=== PATIENT | male | born 1995 | race Caucasian/White ===

== ENCOUNTER 2022-08-18 09:29 | Outpatient (CLI) | payer OTHER, SELFPAY | END 2022-08-18 09:30 | disposition home or self-care (01) | PROVIDERS: PCP Family Medicine; Visit Provider Family Medicine | DX: Z00.00 Encounter for general adult medical examination without abnormal findings (principal); Z11.1 Encounter for screening for respiratory tuberculosis; Z01.84 Encounter for antibody response examination | CPT/HCPCS: 86480; 86706; 86735; 86762; 86765; 86787 ==